=== PATIENT | female | born 1960 | race Caucasian/White ===

== ENCOUNTER 2016-10-31 10:59 | Emergency (ER) | payer BC, OTHER ==
[2016-10-31] MEDS ORDERED: MELOXICAM 7.5 MG TABLET PO STA (14:05)
== END 2016-10-31 14:22 | disposition home or self-care (01) ==
DX: M25.462 Effusion, left knee (principal); I25.2 Old myocardial infarction; K21.9 Gastro-esophageal reflux disease without esophagitis; Z79.82 Long term (current) use of aspirin; F17.200 Nicotine dependence, unspecified, uncomplicated
CPT/HCPCS: 93971; 99283; A9270

== ENCOUNTER 2017-07-15 16:10 | Emergency (ER) | payer BC, OTHER ==
[2017-07-15] MEDS ORDERED: predniSONE 20 MG TABLET PO STA (16:48)
--- NOTE | 2017-07-15 16:50 | ED Physician Documentation ---
PD HPI HEENT - Stated complaint Stated Complaint: AMILCAR PX - Chief complaint Chief Complaint: Heent - History obtained from History obtained from: Patient - History of Present Illness Timing - onset: Other (This is a 57-year-old woman with recurrent oropharyngeal angioedema of unclear etiology. She, over the last 3 years, has had occasional angioedema, initially thought to be due to lisinopril, but has had recurrent episodes despite no longer taking an GLENDY inhibitor. The last time was a couple of weeks ago and she had lip swelling. Today it started abruptly after scratching her Tongue on a potato chip while she was eating it. She is seen an hotel attendant, there is no clear cause. It does not run in the family.) Review of Systems Constitutional: denies: Fever, Chills Ears: denies: Loss of hearing, Ear pain Nose: reports: Rhinorrhea / runny nose, Congestion Throat: denies: Sore throat : reports: Dysuria, Frequency, Hesitancy PD PAST MEDICAL HISTORY - Past Medical History Past Medical History: Yes Cardiovascular: Angina, [place], Other Endocrine/Autoimmune: None GI: GERD LUGGAGE LINER: None : None Psych: None Derm: None Other Past Medical History: palpatations - Past Surgical History Past Surgical History: Yes Cardiovascular: Coronary stent - Present Medications Home Medications: Ambulatory Orders Medication Instructions Recorded Confirmed Aspirin 81 mg PO DAILY 03/01/13 07/15/17 Metoprolol Succinate 25 mg PO DAILY 07/15/17 07/15/17 Nitroglycerin [Nitrostat] 0.4 mg SL Q5MIN PRN 07/15/17 07/15/17 Rosuvastatin Calcium [Crestor] 5 mg PO DAILY 07/15/17 07/15/17 Sulfamethoxazole/Trimethoprim 1 each PO BID 5 Days 07/15/17 [Sulfamethoxazole-Tmp Ds Tablet] predniSONE [Deltasone] 20 mg PO DAILY 3 Days 07/15/17 - Allergies Allergies/Adverse Reactions: Allergies Allergy/AdvReac Type Severity Reaction Status Date / Time clopidogrel bisulfate * Allergy Mild SWOLLEN Verified 07/15/17 16:19 [From Plavix] LIP/FACE lisinopril Allergy Mild FACE Verified 07/15/17 16:19 SWELLING morphine Allergy Mild BURNING/ITC Verified 07/15/17 16:19 RYLAN Penicillins Allergy Mild Hives Verified 07/15/17 16:19 prasugrel HCl * Allergy Mild SWOLLEN Verified 07/15/17 16:19 [From Effient] TONGUE pseudoephedrine HCl * Allergy Mild Hives Verified 07/15/17 16:19 [From Actifed] triprolidine HCl * Allergy Mild Hives Verified 07/15/17 16:19 [From Actifed] BALINTA Allergy Mild HIVES/TONGUE Uncoded 07/15/17 16:19 SWELLING - Social History Does the pt smoke?: No Smoking Status: Former smoker Does the pt drink ETOH?: No Does the pt have substance abuse?: No - Immunizations Immunizations are current?: Yes - POLST Patient has POLST: No PD ED PE NORMAL - Vitals Vital signs reviewed: Yes - General General: Alert and oriented X 3, No acute distress - HEENT HEENT: Ears normal, Other (She has isolated left sided angioedema of the tongue without posterior oropharyngeal angioedema.) - Neck Neck: Supple, no meningeal sign, No bony TTP - Neuro Neuro: Alert and oriented X 3, Normal speech - Psych Psych: Normal mood, Normal affect Results - Vitals Vitals: Vital Signs - 24 hr 07/15/17 07/15/17 16:15 17:54 Temperature 36 C L 36.1 C L Heart Rate 64 65 Respiratory 16 16 Rate Blood Pressure 138/75 H 135/79 H O2 Saturation 100 98 Oxygen O2 Source Room air - Labs Labs: Laboratory Tests 07/15/17 16:38 Urine Color YELLOW Urine Clarity HAZY Urine pH 6.0 Ur Specific [place] <=1.005 Urine Protein NEGATIVE Urine Glucose (UA) NEGATIVE Urine Ketones NEGATIVE Urine Occult Blood SMALL H Urine Nitrite NEGATIVE Urine Bilirubin NEGATIVE Urine Urobilinogen 0.2 (NORMAL) Ur Leukocyte Esterase SMALL H Urine RBC 0-5 Urine WBC 6-10 H Ur Squamous Epith Cells FEW Squamous Urine Bacteria None Seen Ur Microscopic Review INDICATED Urine Culture Comments INDICATED PD MEDICAL DECISION MAKING - ED course ED course: 57-year-old woman with recurrent oropharyngeal angioedema, she does have evidence of UTI as well. There is no evidence of airway compromise either initially or during an observation period in the department. She says that usually prednisone is helpful with this. Departure - Departure Disposition: 01 Home, Self Care Clinical Impression: Cystitis Angio-edema Qualifiers: Encounter type: initial encounter Qualified Code(s): T78.3XXA - Angioneurotic edema, initial encounter Condition: Good Record reviewed to determine appropriate education?: Yes Instructions: ED UTI Cystitis Female, ED Angioedema Prescriptions: predniSONE [Deltasone] 20 mg PO DAILY 3 Days Sulfamethoxazole/Trimethoprim [Sulfamethoxazole-Tmp Ds Tablet] 1 each PO BID 5 Days Comments: Your blood pressure was elevated today on check into the emergency department. This does not mean that you have hypertension, it is a common phenomenon to come to the emergency department and have elevated blood pressure. I recommend that she see your primary care physician within the week to have it rechecked when you are feeling better. We will culture your urine, the results should be done in 48-72 hours. If an antibiotic change is necessary we will call you. Return if worse in the meantime, especially if you develop increasing flank pain, fevers, or cannot keep down the medication. Call your doctor to arrange a follow-up appointment, make the next available appointment. In the interim, return anytime if worse or if new symptoms develop. Discharge Date/Time: 07/15/17 17:54
[2017-07-15] MEDS ORDERED: predniSONE 20 MG TABLET ONE (16:55)
[2017-07-15 16:59] LABS: BILIRUBIN,URINE NEGATIVE (NEGATIVE)
[2017-07-15 17:16] LABS: UA w/ MICROSCOPIC CHARGE YES
[2017-07-15 17:17] LABS: UR CULTURE IF IND INDICATED
[2017-07-15] MEDS ORDERED: SULFAMETH/TRIMETH DS 800/160 MG TABLET PO STA (17:37)
[2017-07-15] MEDS ORDERED: SULFAMETH/TRIMETH DS 800/160 MG TABLET PO ONE (17:48)
[2017-07-15 17:56] VITALS: BP 135/79
== END 2017-07-15 17:54 | disposition home or self-care (01) ==
LOC: ED 16:10
DX: T78.3XXA Angioneurotic edema, initial encounter (principal); N30.00 Acute cystitis without hematuria; R03.0 Elevated blood-pressure reading, without diagnosis of hypertension; I25.2 Old myocardial infarction; I20.9 Angina pectoris, unspecified; K21.9 Gastro-esophageal reflux disease without esophagitis; Z79.82 Long term (current) use of aspirin; Z87.891 Personal history of nicotine dependence
CPT/HCPCS: 81001; 87086; 99283; 99284; A9270; J7512; 81003

== ENCOUNTER 2017-12-26 08:00 | Outpatient (CLI) | payer BC, OTHER ==
[2017-12-26 13:23] LABS: BASOPHILS % (AUTO) 0.8 %; EOSINOPHILS # (AUTO) 0.1 10^3/uL (0.0-0.7); HGB - HEMOGLOBIN 12.7 g/dL (12.0-16.0); LYMPHOCYTES % (AUTO) 35.4 %; MEAN CORPUSCULAR HEMOGLOBIN 29.5 pg (27.0-31.0); MEAN CORPUSCULAR HGB CONC 33.6 g/dL (32.0-36.0); MEAN PLATELET VOLUME 9.7 fL (7.9-10.8); MONOCYTES # (AUTO) 0.4 10^3/uL (0.0-1.0); MONOCYTES % (AUTO) 7.6 %; NEUTROPHILS # (AUTO) 3.1 10^3/uL (1.5-6.6); NEUTROPHILS % (AUTO) 54.2 %; PLT - PLATELET COUNT 181 10^3/uL (130-450); RED CELL DISTRIBUTION WIDTH 13.7 % (12.0-15.0); WHITE BLOOD COUNT 5.7 x10^3/uL (4.8-10.8)
[2017-12-26 13:40] LABS: ALBUMIN 4.4 g/dL (3.2-5.5); ALBUMIN/GLOBULIN RATIO 1.3 (1.0-2.2); ALKALINE PHOSPHATASE 50 IU/L (42-121); ALT ALANINE AMINOTRANSFERASE 13 IU/L (10-60); AST ASPARTATE AMINOTRANSFERASE 15 IU/L (10-42); BILIRUBIN,TOTAL 0.5 mg/dL (0.2-1.0); BUN - BLOOD UREA NITROGEN 18 mg/dL (6-20); CALCIUM 9.5 mg/dL (8.5-10.3); CARBON DIOXIDE - CO2 29 mmol/L (21-32); CHLORIDE 103 mmol/L (101-111); CHOL/HDL RATIO 2.5 (<4.4); CHOLESTEROL 175 mg/dL; CREATININE 0.7 mg/dL (0.4-1.0); GFR - MDRD 86 (>89); GLUCOSE 101 mg/dL (70-100); HDL CHOLESTEROL 69 mg/dL; LDL CHOLESTEROL,CALCULATED 89 mg/dL; LDL/HDL RATIO 1.3 (<4.4); SODIUM 141 mmol/L (135-145); TOTAL PROTEIN 7.7 g/dL (6.7-8.2); VLDL CHOLESTEROL 17 mg/dL
== END 2017-12-26 08:01 | disposition home or self-care (01) ==
LOC: LAB.WCP 08:00
PROVIDERS: ATTEND Family Medicine
DX: I25.10 Atherosclerotic heart disease of native coronary artery without angina pectoris (principal); E78.9 Disorder of lipoprotein metabolism, unspecified
CPT/HCPCS: 36415; 80053; 80061; 83721; 85025

== ENCOUNTER 2018-09-13 14:34 | Outpatient (CLI) | payer BC, OTHER ==
--- NOTE | 2018-09-13 19:09 | MRI Report ---
Reason: ROTATOR CUFF SYNDROME,LEFT Procedure Date: 09/13/2018 Accession Number: [id number] / [id number] Procedure: MRI - Shoulder LT W/O CPT Code: FULL RESULT: EXAM: LEFT SHOULDER MRI WITHOUT CONTRAST EXAM DATE: 09/13/2018 03:19 PM. CLINICAL HISTORY: Rotator cuff syndrome, left. Limited range of motion and tenderness left shoulder. COMPARISON: Shoulder 3 view left 06/18/2018 2:55 PM. TECHNIQUE: Multiplanar, multisequence T1-weighted and fluid-sensitive sequences of the shoulder without contrast. Other: None. FINDINGS: Acromioclavicular Region: The acromion is type II. The acromioclavicular joint is unremarkable. The coracoacromial and coracoclavicular ligaments are intact. Small fluid collection subacromial subdeltoid bursa. Glenohumeral Region: No subluxation. No effusion or loose bodies. The articular cartilage is unremarkable. The glenohumeral ligaments and joint capsule are unremarkable. Bone Marrow: No fracture, marrow edema or bone lesions. Labrum: Diminutive posterior superior glenoid labrum. Musculature/Rotator Cuff: Complete supraspinatus rotator cuff tear 1.8 cm in transverse dimension and 2 cm in AP dimension. Linear interstitial tear subscapularis tendon 1.2 cm in length. Negative for infraspinatus tendon tear. The rotator cuff muscles are negative for atrophy or fatty replacement. Biceps Tendon: The long head of the biceps tendon and biceps diego are intact. Other: The subcutaneous tissues are unremarkable. IMPRESSION: Complete tear supraspinatus tendon 2 cm in AP dimension and 1.8 cm in transverse dimension with supraspinatus tendon retraction to the 12 o'clock position humerus head. [facility] MUSCULOSKELETAL RADIOLOGY SECTION
== END 2018-09-13 14:35 | disposition home or self-care (01) ==
LOC: DI 14:34
PROVIDERS: ATTEND Orthopaedic Surgery
DX: M75.102 Unspecified rotator cuff tear or rupture of left shoulder, not specified as traumatic (principal)

== ENCOUNTER 2019-02-18 11:28 | Outpatient (CLI) | payer BC, OTHER ==
[2019-02-18 19:32] LABS: BASOPHILS % (AUTO) 0.6 %; EOSINOPHILS # (AUTO) 0.1 10^3/uL (0.0-0.7); HGB - HEMOGLOBIN 11.9 g/dL (12.0-16.0); LYMPHOCYTES % (AUTO) 30.5 %; MEAN CORPUSCULAR HEMOGLOBIN 29.3 pg (27.0-31.0); MEAN CORPUSCULAR HGB CONC 32.5 g/dL (32.0-36.0); MEAN CORPUSCULAR VOLUME 90.3 fL (81.0-99.0); MEAN PLATELET VOLUME 9.8 fL (7.9-10.8); MONOCYTES # (AUTO) 0.6 10^3/uL (0.0-1.0); MONOCYTES % (AUTO) 9.3 %; NEUTROPHILS # (AUTO) 3.9 10^3/uL (1.5-6.6); NEUTROPHILS % (AUTO) 58.6 %; PLT - PLATELET COUNT 206 10^3/uL (130-450); RED BLOOD COUNT 4.06 10^6/uL (4.20-5.40); RED CELL DISTRIBUTION WIDTH 13.6 % (12.0-15.0); WHITE BLOOD COUNT 6.7 x10^3/uL (4.8-10.8)
[2019-02-18 19:49] LABS: CALCIUM 9.4 mg/dL (8.5-10.3); CREATININE 0.7 mg/dL (0.4-1.0); URIC ACID 4.5 mg/dL (2.6-7.2)
== END 2019-02-18 11:29 | disposition home or self-care (01) ==
LOC: LAB.WCP 11:28
PROVIDERS: ATTEND Family Medicine
DX: M13.169 Monoarthritis, not elsewhere classified, unspecified knee (principal)
CPT/HCPCS: 36415; 80048; 84550; 85025; 85651

== ENCOUNTER 2019-02-21 13:59 | Outpatient (CLI) | payer BC, OTHER ==
--- NOTE | 2019-02-21 15:23 | XRAY Report ---
Reason: MONOARTHRITIS KNEE Procedure Date: 02/21/2019 Accession Number: [id number] / [id number] Procedure: XR - Knee 3 View LT CPT Code: FULL RESULT: EXAM: LEFT KNEE RADIOGRAPHY EXAM DATE: 02/21/2019 02:22 PM. CLINICAL HISTORY: Left knee pain and swelling for 1 week after twisting injury. COMPARISON: LEFT KNEE MRI 11/25/2008 3:45 PM. TECHNIQUE: 3 views. FINDINGS: Bones: No acute fracture or bone lesion. There is a concave contour abnormality about the superior margin of the patella as seen previously. Joints: Mild to moderate patellar compartment joint space loss and periarticular osteophytes present as before. The femoral tibial compartment joint spaces are well preserved without significant osteophytes. Moderate femorotibial compartment chondrocalcinosis noted. No joint effusion present. Soft Tissues: Normal. No soft tissue swelling. IMPRESSION: 1. No fracture or effusion evident. 2. Concavity about the superior patella unchanged and may represent a congenital anomaly or remote post traumatic defect. 3. 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 4. Moderate femorotibial compartment chondrocalcinosis. [facility]
== END 2019-02-21 14:00 | disposition home or self-care (01) ==
LOC: DI 13:59
PROVIDERS: ATTEND Family Medicine
DX: M17.12 Unilateral primary osteoarthritis, left knee (principal); M11.262 Other chondrocalcinosis, left knee

== ENCOUNTER 2019-02-27 14:10 | Outpatient (CLI) | payer BC, OTHER ==
[2019-02-27 19:32] LABS: RHEUMATOID FACTOR NEGATIVE (Negative)
[2019-03-01 15:12] LABS: ANA SCREEN NEGATIVE (NEGATIVE)
== END 2019-02-27 14:11 | disposition home or self-care (01) ==
LOC: LAB.WCP 14:10
PROVIDERS: ATTEND Family Medicine
DX: M13.169 Monoarthritis, not elsewhere classified, unspecified knee (principal)
CPT/HCPCS: 36415; 86038; 86140; 86430

== ENCOUNTER 2019-02-27 14:17 | Outpatient (CLI) | payer BC, OTHER ==
--- NOTE | 2019-02-27 15:58 | XRAY Report ---
Reason: ESR,ELEVATED,LOW BACK PAIN ACUTE Procedure Date: 02/27/2019 Accession Number: [id number] / [id number] Procedure: WCP - Lumbar Spine 2 View CPT Code: FULL RESULT: EXAM: LUMBOSACRAL SPINE RADIOGRAPHY EXAM DATE: 02/27/2019 02:26 PM. CLINICAL HISTORY: ESR elevated, low back pain, acute. COMPARISONS: None. TECHNIQUE: 2 views. FINDINGS: Alignment: Normal. No spondylolisthesis or scoliosis. Bones: Five [id number] lumbar vertebral bodies are present. No fractures or bone lesions. Disks: Mild disk osteophyte complex formation is seen at L1-L2 and L2-L3. Facets: Moderate facet arthropathy changes predominantly at L5. Sacroiliac Joints: Unremarkable. Soft Tissues: Calcifications of the abdominal aorta are noted, at the level of the L2/L3 disk space there appears to be anterior displacement of aortic calcifications, and possible nonvisualized aortic aneurysm. IMPRESSION: Question aortic aneurysm based on anterior displacement of vascular plaque, recommend imaging for clarification. Ultrasound versus CT depending on degree of clinical suspicion. Mild to moderate degenerative changes. [facility]
== END 2019-02-27 14:18 | disposition home or self-care (01) ==
LOC: DI.WCP 14:17
PROVIDERS: ATTEND Family Medicine
DX: M47.9 Spondylosis, unspecified (principal); M51.36 Other intervertebral disc degeneration, lumbar region; M13.169 Monoarthritis, not elsewhere classified, unspecified knee
CPT/HCPCS: 36415; 72100; 86038; 86140; 86430

== ENCOUNTER 2019-03-05 07:13 | Outpatient (CLI) | payer BC, OTHER ==
--- NOTE | 2019-03-05 08:57 | Ultrasound Report ---
Reason: ABDOMINAL AORTIC ANEURYSM Procedure Date: 03/05/2019 Accession Number: [id number] / [id number] Procedure: US - Aorta Screening CPT Code: FULL RESULT: EXAM: AORTIC DOPPLER ULTRASOUND EXAM DATE: 03/05/2019 07:33 AM. CLINICAL HISTORY: Abdominal aortic aneurysm. COMPARISON: None. TECHNIQUE: Real-time sonographic imaging of retroperitoneal vascular structures, including color-flow, Doppler flow and spectral analysis was performed by the post graduate internship. Multiple underwriting sales representative static images were saved for review. FINDINGS: Aorta: The abdominal aorta was adequately visualized. No evidence for abdominal aortic aneurysm. Aorta: Proxima: Sagittal AP 2.3 cm. Mid: Transverse 2.0 x 2.0 cm. Distal: Transverse 1.9 x 2.0 cm. Caliber: WNL: Yes. Plaque visualized: Yes. Iliacs: Right Iliac: Transverse 1.1 x 1.2 cm. Left Iliac: Transverse 1.0 x 1.1 cm. Doppler: Prox RCIA PSV: 476.0 cm/sec. Iliac Vessels: The visualized proximal common iliac arteries are normal in caliber. There is elevated flow velocity in the proximal right common iliac artery (peak systolic velocity 476 cm/s) with monophasic waveform distal to the stenosis. Other: None. IMPRESSION: 1. No abdominal aortic aneurysm. 2. 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 Appropriate action is recommended. Consider referral for further evaluation and possible therapy as clinically indicated. [facility]
== END 2019-03-05 07:14 | disposition home or self-care (01) ==
LOC: DI 07:13
PROVIDERS: ATTEND Family Medicine
DX: I70.8 Atherosclerosis of other arteries (principal)
CPT/HCPCS: 76706

== ENCOUNTER 2020-12-30 14:14 | Outpatient (CLI) | payer BC, OTHER ==
--- NOTE | 2020-12-30 16:24 | XRAY Report ---
PROCEDURE: Lumbar Spine 2 View INDICATIONS: LOW BACK PAIN TECHNIQUE: 2 views of the lumbar spine were acquired. COMPARISON: 02/27/2019. FINDINGS: Bones: 5 [id number] vertebrae are present. There is normal bony alignment. No acute vertebral body compression fractures. No suspicious bony lesions. Multilevel lumbar spondylosis with degener ative endplate changes and prominent anterior endplate osteophyte formation. Findings are most severe at L5-S1 where there is disc space loss. Mid and lower lumbar facet arthrosis. Soft tissues: Overlying bowel gas pattern is normal. No suspicious soft tissue calcifications. Ext ensive atherosclerotic calcifications of the abdominal aorta as before. IMPRESSION: Lumbar spine without acute osseous abnormalities. Relatively stable appearance of mild-moderate multilevel lumbar spondylosis, most prominent at L5-S1. Reviewed by: Jonny Montesinos MD on 12/30/2020 4:23 PM PST Approved by: Jonny Montesinos MD on 12/30/2020 4:23 PM PST Station ID: [id number]
== END 2020-12-30 14:15 | disposition home or self-care (01) ==
LOC: DI.N 14:14
PROVIDERS: ATTEND Nurse Practitioner Family
DX: M47.817 Spondylosis without myelopathy or radiculopathy, lumbosacral region (principal)

== ENCOUNTER 2021-10-10 08:00 | Outpatient (CLI) | payer BC, OTHER | END 2021-10-10 23:59 | LOC: LAB.N 08:00 | PROVIDERS: ATTEND Nurse Practitioner | DX: J03.90 Acute tonsillitis, unspecified (principal) | CPT/HCPCS: 87070 ==

== ENCOUNTER 2022-03-14 08:00 | Outpatient (CLI) | payer BC, OTHER | END 2022-03-14 23:59 | disposition home or self-care (01) | LOC: LAB.N 08:00 | PROVIDERS: ATTEND Family Medicine | DX: R39.15 Urgency of urination (principal); R30.0 Dysuria | CPT/HCPCS: 87086 ==

== ENCOUNTER 2023-01-03 15:02 | Outpatient (CLI) | payer BC, OTHER ==
[2023-01-03 15:23] LABS: BASOPHILS # (AUTO) 0.1 10^3/uL (0.0-0.1); BASOPHILS % (AUTO) 0.6 %; EOSINOPHILS # (AUTO) 0.1 10^3/uL (0.0-0.7); EOSINOPHILS % (AUTO) 1.5 %; HCT - HEMATOCRIT 39.2 % (37.0-47.0); HGB - HEMOGLOBIN 12.7 g/dL (12.0-16.0); LYMPHOCYTES # (AUTO) 2.6 10^3/uL (1.5-3.5); LYMPHOCYTES % (AUTO) 30.7 %; MEAN CORPUSCULAR HEMOGLOBIN 29.2 pg (27.0-31.0); MEAN CORPUSCULAR HGB CONC 32.4 g/dL (32.0-36.0); MEAN CORPUSCULAR VOLUME 90.1 fL (81.0-99.0); MEAN PLATELET VOLUME 10.4 fL (7.9-10.8); MONOCYTES # (AUTO) 0.7 10^3/uL (0.0-1.0); MONOCYTES % (AUTO) 7.6 %; NEUTROPHILS # (AUTO) 5.1 10^3/uL (1.5-6.6); NEUTROPHILS % (AUTO) 59.4 %; PLT - PLATELET COUNT 239 10^3/uL (130-450); RED BLOOD COUNT 4.35 10^6/uL (4.20-5.40); WHITE BLOOD COUNT 8.5 x10^3/uL (4.8-10.8)
[2023-01-03 15:27] LABS: CALCIUM 9.3 mg/dL (8.5-10.3); CREATININE 0.8 mg/dL (0.4-1.0)
--- NOTE | 2023-01-03 16:18 | DEXA Report ---
PROCEDURE: Dexa Spine and/or Hip INDICATIONS: POST MENOPAUSAL, CLAUDICATION TECHNIQUE: Dual energy x-ray absorptiometry (DXA) was performed on a [employer]. Regions measur ed are the AP Spine, femoral neck, and if needed forearm. COMPARISON: None. FINDINGS: Lumbar Spine: Bone Mineral Density 1.025 g/cm/cm,T score -1.3, osteopenia. Left Femoral Neck: Bone Mineral Density 0.779 g/cm/cm, T score -1.9, osteopenia. Left Hip: Bone Mineral Density 0.9 g/cm/cm,T score -0.9, normal. Impression: Osteopenia. Patients with diagnosis of osteoporosis or osteopenia should have regular bone mineral density assess ment. For those eligible for Medicare, routine testing is allowed once every 2 years. Testing frequ ency can be increased for patients who have rapidly progressing disease or for those who are receivin g medical therapy to restore bone mass. Reviewed by: Gideon Tabares on 01/03/2023 4:16 PM PDT Approved by: Gideon Tabares on 01/03/2023 4:16 PM PDT Station ID: [id number]
== END 2023-01-03 15:03 | disposition home or self-care (01) ==
LOC: DI 15:02
PROVIDERS: ATTEND Family Medicine
DX: M85.89 Other specified disorders of bone density and structure, multiple sites (principal); I73.9 Peripheral vascular disease, unspecified; Z78.0 Asymptomatic menopausal state
CPT/HCPCS: 36415; 80048; 85025

== ENCOUNTER 2024-01-28 13:00 | Outpatient (CLI) | payer BC, OTHER ==
[2024-01-28 17:39] LABS: BASOPHILS % (AUTO) 0.5 %; EOSINOPHILS # (AUTO) 0.1 10^3/uL (0.0-0.7); EOSINOPHILS % (AUTO) 0.6 %; HCT - HEMATOCRIT 38.8 % (37.0-47.0); HGB - HEMOGLOBIN 11.9 g/dL (12.0-16.0); LYMPHOCYTES # (AUTO) 1.4 10^3/uL (1.5-3.5); LYMPHOCYTES % (AUTO) 17.2 %; MEAN CORPUSCULAR HEMOGLOBIN 27.7 pg (27.0-31.0); MEAN CORPUSCULAR HGB CONC 30.7 g/dL (32.0-36.0); MEAN CORPUSCULAR VOLUME 90.4 fL (81.0-99.0); MEAN PLATELET VOLUME 10.6 fL (7.9-10.8); MONOCYTES # (AUTO) 0.7 10^3/uL (0.0-1.0); MONOCYTES % (AUTO) 8.2 %; NEUTROPHILS # (AUTO) 6.1 10^3/uL (1.5-6.6); NEUTROPHILS % (AUTO) 72.9 %; PLT - PLATELET COUNT 276 10^3/uL (130-450); RED BLOOD COUNT 4.29 10^6/uL (4.20-5.40); RED CELL DISTRIBUTION WIDTH 13.1 % (12.0-15.0); WHITE BLOOD COUNT 8.3 x10^3/uL (4.8-10.8)
[2024-01-28 18:45] LABS: ALBUMIN 4.1 g/dL (3.2-5.5); ALBUMIN/GLOBULIN RATIO 1.1 (1.0-2.2); ALKALINE PHOSPHATASE 71 IU/L (42-121); ALT ALANINE AMINOTRANSFERASE 6 IU/L (10-60); AST ASPARTATE AMINOTRANSFERASE 9 IU/L (10-42); BILIRUBIN,TOTAL 0.5 mg/dL (0.2-1.0); BUN - BLOOD UREA NITROGEN 14 mg/dL (6-20); CALCIUM 10.1 mg/dL (8.5-10.3); CARBON DIOXIDE - CO2 32 mmol/L (21-32); CHLORIDE 99 mmol/L (101-111); CHOL/HDL RATIO 4.2 (<4.4); CHOLESTEROL 198 mg/dL; CREATININE 0.7 mg/dL (0.6-1.3); GFR - MDRD 84 (>89); GLUCOSE 103 mg/dL (74-104); HDL CHOLESTEROL 47 mg/dL; LDL CHOLESTEROL,CALCULATED 117 mg/dL; LDL/HDL RATIO 2.5 (<4.4); POTASSIUM 4.2 mmol/L (3.5-4.5); SODIUM 137 mmol/L (135-145); TRIGLYCERIDES 171 mg/dL (48-352); VLDL CHOLESTEROL 34 mg/dL
[2024-01-28 18:53] LABS: THYROID STIMULATING HORMONE 1.94 uIU/mL (0.34-5.60)
[2024-01-28 21:09] LABS: ESTIMATED AVERAGE GLUCOSE 114 mg/dL (70-100); HEMOGLOBIN A1c% 5.6 % (4.27-6.07)
--- NOTE | 2024-01-29 12:30 | XRAY Report ---
PROCEDURE: Knee 2V LT INDICATIONS: KNEE PAIN, LEFT TECHNIQUE: 3 views of the knee was obtained. COMPARISON: None FINDINGS: Bones: No fractures or dislocations. No suspicious bony lesions. Soft tissues: Moderate knee joint effusion. No suspicious soft tissue calcifications or masses. Sti ppled meniscal calcification. IMPRESSION: Moderate joint effusion associated with meniscal chondrocalcinosis Reviewed by: Nas Sher MD on 01/29/2024 11:29 AM LUZMA Approved by: Nas Sher MD on 01/29/2024 11:29 AM AKDT Station ID: [id number]
== END 2024-01-28 13:15 | disposition home or self-care (01) ==
LOC: DI.N 13:00
PROVIDERS: ATTEND Family Medicine
DX: M11.262 Other chondrocalcinosis, left knee (principal); I73.9 Peripheral vascular disease, unspecified; R73.9 Hyperglycemia, unspecified; N81.4 Uterovaginal prolapse, unspecified; J44.9 Chronic obstructive pulmonary disease, unspecified; R63.0 Anorexia
CPT/HCPCS: 36415; 80053; 80061; 83036; 83721; 84443; 84550; 85025; 85651

== ENCOUNTER 2024-02-07 08:00 | Outpatient (CLI) | payer BC, OTHER ==
--- NOTE | 2024-02-07 15:23 | XRAY Report ---
PROCEDURE: Knee 3 View LT INDICATIONS: LEFT KNEE PAIN TECHNIQUE: 3 views of the left knee were acquired including an AP standing view of both knees. COMPARISON: Left knee radiographs 01/28/2024. FINDINGS: Bones: No acute fractures or dislocations. No suspicious bony lesions. Moderate joint space narro wing is seen at the patellofemoral compartment laterally. There is mild narrowing of the medial and l ateral femorotibial compartments. Soft tissues: No lateral view is included to evaluate for joint effusion. Left knee chondrocalcinosis . IMPRESSION: 1.Moderate left patellofemoral compartment osteoarthrosis. 2.Chondrocalcinosis. Differential diagnosis includes but is not limited to CPPD, hyperparathyroidism , and hemochromatosis. Reviewed by: Lloyd Garg MD on 02/07/2024 3:21 PM PDT Approved by: Lloyd Garg MD on 02/07/2024 3:21 PM PDT Station ID: [id number]
== END 2024-02-07 23:59 | disposition home or self-care (01) ==
LOC: DI.WOS 08:00
PROVIDERS: ATTEND Physician Assistant Surgical
DX: M17.12 Unilateral primary osteoarthritis, left knee (principal); M11.262 Other chondrocalcinosis, left knee